=== PATIENT | male | born 1945 | race Caucasian/White ===

== ENCOUNTER 2019-08-29 12:22 | Outpatient (CLI) | payer MEDICARE, OTHER, SELFPAY ==
[2019-08-29 13:08] LABS: Basophils # 0.1 10^3/uL (0.0-0.1); Basophils % 0.9 %; Eosinophils # 0.5 10^3/uL (0.0-0.8); Eosinophils % 5.7 %; Hematocrit 40.7 % (42.0-52.0); Hemoglobin 13.6 g/dL (11.7-16.6); Lymphocytes # 1.2 10^3/uL (0.8-4.8); Lymphocytes % 13.1 %; Mean Corpuscular HGB Conc 33.4 g/dL (30.0-36.0); Mean Corpuscular Hemoglobin 30.2 pg (28.0-34.0); Mean Corpuscular Volume 90.2 fL (80-94); Mean Platelet Volume 10.9 fL (7.4-10.4); Monocytes # 0.7 10^3/uL (0.2-0.9); Monocytes % 8.1 %; Neutrophils # 6.5 10^3/uL (1.8-7.7); Nucleated Red Blood Cells % 0 %; Platelet Count 215 10^3/cmm (130-400); Red Blood Count 4.51 10^6/uL (4.1-5.3); Red Cell Distribution Width 13.8 % (12.1-15.1); White Blood Count 9.1 10^3/uL (4.0-10.0)
[2019-08-29 13:42] LABS: Alanine Aminotransferase 22 U/L (0-41); Albumin Level 4.1 g/dL (3.5-5.2); Alkaline Phosphatase 69 IU/L (40-130); Anion Gap 18.7 (5-19); Aspartate Amino Transferase 21 U/L (0-40); Blood Urea Nitrogen 26 mg/dL (8-23); Calcium 10.2 mg/dL (8.5-10.5); Carbon Dioxide 26 mmol/L (22-29); Chloride 100 mmol/L (98-107); Glucose 336 mg/dL (65-115); Potassium 4.7 mmol/L (3.5-5.1); Sodium 140 mmol/L (136-145); Thyroid Stimulating Hormone 1.87 uIU/mL (0.27-4.20); Total Bilirubin 0.7 mg/dL (0.15-1.2); Total Protein 8.1 g/dL (6.6-8.7)
[2019-08-29 13:56] LABS: Estmated Average Glucose 243; Hemoglobin A1C 10.1 % (4.0-6.0)
== END 2019-08-29 12:23 | disposition home or self-care (01) ==
LOC: LAB 12:29
PROVIDERS: Visit Provider Nurse Practitioner Family
DX: I10 Essential (primary) hypertension (principal); E11.9 Type 2 diabetes mellitus without complications
CPT/HCPCS: 36415; 80053; 83036; 84443; 85025

== ENCOUNTER 2020-01-19 13:37 | Outpatient (CLI) | payer MEDICARE, OTHER, SELFPAY ==
--- NOTE | 2020-01-19 14:15 | USCV_ITS ---
Roman Gale Age: 74 Gender: M : 1945 Exam Date: 01/19/2020 13:56 Ordering Phys: Nilsa Wolf MD ([email or web address]) Technologist: Tran Menendez Exam Location[place] [facility] [place]ication: CAROTID STENOSIS HISTORY OF PRIOR CVA RECENTLY HAD A SYNCOPE EPISODE Risk Factors: Previous Vascular Surgery: Right Brachial BP: / Left Brachial BP: / Right Left Velocity (cm/s) Spectral Plaque Velocity (cm/s) Spectral Plaque Syst/Diast Broadening Syst/Diast Broadening 75.90/ 12.50 Prox CCA 93.10 / 20.50 64.40/ 11.50 Mid CCA 52.10 / 15.40 44.00/ 12.20 Distal CCA 44.40 / 11.10 51.60/ 13.30 Prox ICA 50.20 / 16.00 37.40/ 11.20 Mid ICA 49.30 / 13.50 43.20/ 10.50 Distal ICA 45.00 / 14.10 32.70 ECA 42.20 0.80 ICA/CCA 0.96 Antegrade Vertebral Antegrade 24.20/ 9.10 cm/s 35.20/ 10.70 cm/s Tri Subclavian Tri 59.50 243.3 0 FINDINGS Minimal plaques at the bifurcations bilaterally. Intimal thickening in the common carotid arteries bilaterally. Antegrade flow in the vertebral arteries bilaterally. Normal Doppler flow velocities in the external carotid arteries bilaterally. Elevated Doppler flow velocity in the left subclavian artery CONCLUSIONS Minimal plaques at the bifurcations bilaterally with no significant stenosis, based on flow velocity measurements. Elevated Doppler flow velocity in the left subclavian artery may suggest hemodynamically significant stenosis Consider CTA of the aortic arch vessels, to better evaluate the proximal subclavian artery, if clinically indicated. Dr Apolinar Echevarria MD [facility] (Electronically Signed) Final Date: 19 January 2020 17:50 S
== END 2020-01-19 13:38 | disposition home or self-care (01) ==
LOC: RAD 13:37
PROVIDERS: PCP Nurse Practitioner Family; Visit Provider Internal Medicine Cardiovascular Disease
DX: I65.29 Occlusion and stenosis of unspecified carotid artery (principal); Z86.73 Personal history of transient ischemic attack (TIA), and cerebral infarction without residual deficits
CPT/HCPCS: 93880

== ENCOUNTER 2021-06-26 09:41 | Outpatient (CLI) | payer MEDICARE, OTHER, SELFPAY ==
--- NOTE | 2021-06-26 09:50 | US_ITS ---
WS: [id number] RENAL ULTRASOUND HISTORY: CKD COMPARISON: 06/26/2019 TECHNIQUE: 2-D and color Doppler imaging of the kidney submitted. Right kidney: 12.0 cm x 6.1 cm x 6.0 cm. Normal echogenicity with no hydronephrosis or mass. Left kidney: Prior LEFT nephrectomy. Aorta: Normal. Urinary Bladder: Normal distention. US/US renal BI* [id number] IMPRESSION: 1. Normal RIGHT kidney. 2. Prior LEFT nephrectomy.
== END 2021-06-26 09:42 | disposition home or self-care (01) ==
PROVIDERS: PCP Nurse Practitioner Family; Visit Provider Urology
DX: N18.9 Chronic kidney disease, unspecified (principal); Z90.5 Acquired absence of kidney
CPT/HCPCS: 76770; 81003